=== PATIENT | female | born 1995 | race Two or more races ===

== ENCOUNTER 2018-11-29 15:09 | Inpatient (IN) ==
[2018-11-29] MEDS ORDERED: BUTORPHANOL 2 MG/ML VIAL IV PRN (15:21)
[2018-11-29] MEDS ORDERED: ONDANSETRON 4 MG/2 ML VIAL IV PRN (15:21)
[2018-11-29] MEDS ORDERED: MEPERIDINE 50 MG/1 ML VIAL IV PRN (15:21)
[2018-11-29] MEDS ORDERED: DINOPROSTONE VAG GEL 10 MG SYRINGE VAG ONE (15:26)
[2018-11-29 15:52] LABS: Basophils % 0.3 % (0.0-0.8); Eosinophils # 0.1 10*3/uL (0.0-0.87); Eosinophils % 1.2 % (0.00-10.9); Hematocrit 28.5 VOL% (35.7-47.0); Hemoglobin 8.8 GM/DL (12.0-16.0); Immature Granulocytes % 0.5 %; Immature Granulocytes Absolute 0.04 #; Lymphocytes # 2.3 10*3/uL (1.4-4.0); Lymphocytes % 30.1 % (21.3-54.2); Mean Corpuscular HGB Conc 30.9 GM/DL (32-36); Mean Corpuscular Hemoglobin 26 PG (27-34); Mean Corpuscular Volume 84.8 FL (87-102); Mean Platelet Volume 9.7 FL (9.6-12.0); Monocytes # 0.8 10*3/uL (0.11-0.8); Monocytes % 10.5 % (1.7-12.7); NRBC # 0.02 10*3/uL; Neutrophils # 4.3 10*3/uL (1.4-7.4); Neutrophils % 57.4 % (38.7-73.9); Platelet Count 343 T/CUMM (130-400); Red Blood Count 3.36 MC/CUMM (3.8-5.5); Red Cell Distribution Width 15.8 % (9.3-17.3); White Blood Count 7.5 T/CUMM (4-12)
[2018-11-29 16:06] LABS: INR 0.9; PT Patient Result 9.5 SECS; Partial Thromboplastin Time 28.5 SECS (0-40)
[2018-11-29 16:14] LABS: Alanine Aminotransferase 16 U/L (13-56); Albumin 2.8 G/DL (3.4-5.0); Alkaline Phosphatase 188 U/L (45-117); Aspartate Amino Transferase 21 U/L (0-37); Bilirubin,Total < 0.39 MG/DL (0.2-1.0); Blood Urea Nitrogen 9 MG/DL (7-18); Calcium 8.6 MG/DL (8.5-10.1); Glucose 66 MG/DL (74-106); Osmolality,Calculated 269.8 MOS/KG (273-304); Potassium 3.8 MMOL/L (3.5-5.1); Sodium 137 MMOL/L (136-145); Total Protein 6.9 G/DL (6.4-8.3); Uric Acid 4.8 MG/DL (2.6-6.0)
[2018-11-30] MEDS ORDERED: ZALEPLON 5 MG CAPSULE PO ONE (01:03)
[2018-11-30] MEDS: LACTATED RINGERS 1,000 ML IV SCH ×2 (01:45→11:58)
[2018-11-30] MEDS ORDERED: OXYTOCIN/LR 20 UNIT/1,000 ML BAG IV SCH (02:00)
[2018-11-30] MEDS ORDERED: DINOPROSTONE VAG GEL 10 MG SYRINGE VAG ONE (08:04)
[2018-11-30] MEDS ORDERED: ceFAZolin 2,000 MG in PREMIX 1 EACH IV ONE (16:25)
[2018-11-30] MEDS ORDERED: CITRIC ACID/SODIUM CITRATE 30 ML UDCUP PO ONE (16:25)
[2018-11-30] MEDS ORDERED: FAMOTIDINE 20 MG/2 ML VIAL IV ONE (16:25)
[2018-11-30] MEDS ORDERED: OXYTOCIN 10 UNIT/ML VIAL IM ONE (16:34)
[2018-11-30] MEDS ORDERED: OXYTOCIN/LR 30 UNIT/1,000 ML BAG IV ONE ×2 (16:34→22:30)
[2018-11-30] MEDS ORDERED: BUPIVACAINE 0.5% 50 ML VIAL ONE (17:31)
[2018-11-30 17:58] LABS: Cord Arterial Blood HCO3 24.8 MMOL/L
[2018-11-30 18:00] LABS: Cord Venous Blood HCO3 20.7 MMOL/L; Cord Venous Blood PCO2 47.6 MMHG; Cord Venous Blood PO2 18.4
[2018-11-30] MEDS ORDERED: RHO(D) IMMUNE GLOBULIN 300 MCG SYRINGE IM ONE (18:00)
[2018-11-30] MEDS ORDERED: ONDANSETRON 4 MG/2 ML VIAL IV PRN (18:00)
[2018-11-30] MEDS ORDERED: OXYTOCIN/LR 20 UNIT/1,000 ML BAG IV ONE (18:00)
[2018-11-30] MEDS ORDERED: SIMETHICONE CHEW 80 MG TABLET PO PRN (18:00)
[2018-11-30] MEDS ORDERED: ACETAMINOPHEN 325 MG TABLET PO PRN (18:00)
[2018-11-30 18:01] LABS: Apearance,Urine CLEAR (Clear); Bilirubin,Urine Negative (Negative); Blood, Urine Negative (Negative); Glucose,Urine (UA) Negative (Negative); Ketones,Urine 20 mg/dL (Negative); Mucus,Urine Occasional /LPF (Occasional); Nitrite,Urine Negative (Negative); Protein,Urine Negative; Squamous Epithelial Cell,Urine Occasional /HPF (0-10); Urine Color Yellow (Yellow); Urine Specific Gravity 1.014 (1.001-1.035); Urine Urobilinogen < 2.0 EU/DL (0.2-1.0); WBC,Urine 1 /HPF (0-6)
[2018-11-30] MEDS ORDERED: LACTATED RINGERS 2,000 ML IV ONE (18:14)
[2018-11-30] MEDS ORDERED: MORPHINE 10 MG/10 ML VIAL ONE (18:14)
[2018-11-30] MEDS ORDERED: fentaNYL 100 MCG/2 ML VIAL ONE (18:14)
[2018-11-30] MEDS ORDERED: BUPIVACAINE SPINAL 0.75% 2 ML AMP SPINAL ONE (18:14)
[2018-11-30] MEDS ORDERED: ONDANSETRON 4 MG/2 ML VIAL ONE (18:14)
[2018-11-30] MEDS ORDERED: CARBOPROST TROMETHAMINE 250 MCG/ML AMP IM ONE (22:24)
[2018-11-30] MEDS ORDERED: PROMETHAZINE 25 MG/1 ML VIAL IM PRN (22:48)
[2018-12-01] MEDS: LACTATED RINGERS 1,000 ML IV SCH ×2 (00:52→02:36)
[2018-12-01] MEDS: DOCUSATE SODIUM 100 MG CAPSULE PO SCH ×3 (00:52→22:45)
[2018-12-01] MEDS: ceFAZolin 1,000 MG in SYRINGE 1 EACH IV SCH ×2 (00:59→09:25)
[2018-12-01] MEDS ORDERED: METOCLOPRAMIDE 10 MG TABLET PO PRN (02:02)
[2018-12-01 02:09] LABS: Basophils % 0.3 % (0.0-0.8); Hematocrit 25.5 VOL% (35.7-47.0); Hemoglobin 7.6 GM/DL (12.0-16.0); Immature Granulocytes % 0.6 %; Immature Granulocytes Absolute 0.07 #; Lymphocytes # 1.4 10*3/uL (1.4-4.0); Lymphocytes % 12.1 % (21.3-54.2); Mean Corpuscular HGB Conc 29.8 GM/DL (32-36); Mean Corpuscular Hemoglobin 26 PG (27-34); Mean Corpuscular Volume 86.1 FL (87-102); Mean Platelet Volume 9.8 FL (9.6-12.0); Monocytes # 0.5 10*3/uL (0.11-0.8); Monocytes % 4.4 % (1.7-12.7); Neutrophils # 9.3 10*3/uL (1.4-7.4); Neutrophils % 82.6 % (38.7-73.9); Platelet Count 284 T/CUMM (130-400); Red Blood Count 2.96 MC/CUMM (3.8-5.5); Red Cell Distribution Width 15.7 % (9.3-17.3); White Blood Count 11.3 T/CUMM (4-12)
[2018-12-01 02:18] LABS: Total Cells Counted 0
[2018-12-01] MEDS: FERROUS SULFATE 325 MG TABLET PO SCH ×2 (09:25→22:45)
[2018-12-01] MEDS: MULTIVITAMIN (PRENATAL) TABLET PO SCH (09:25)
[2018-12-01] MEDS: METOCLOPRAMIDE 10 MG TABLET PO SCH ×2 (09:25→17:39)
[2018-12-01 12:19] LABS: Basophils % 0.1 % (0.0-0.8); Eosinophils % 0.4 % (0.00-10.9); Hematocrit 21.9 VOL% (35.7-47.0); Hemoglobin 6.9 GM/DL (12.0-16.0); Immature Granulocytes % 0.4 %; Immature Granulocytes Absolute 0.05 #; Lymphocytes # 2.4 10*3/uL (1.4-4.0); Lymphocytes % 20.6 % (21.3-54.2); Mean Corpuscular HGB Conc 31.5 GM/DL (32-36); Mean Corpuscular Hemoglobin 26 PG (27-34); Mean Corpuscular Volume 83.9 FL (87-102); Mean Platelet Volume 10.4 FL (9.6-12.0); Monocytes % 8.9 % (1.7-12.7); Neutrophils % 69.6 % (38.7-73.9); Platelet Count 300 T/CUMM (130-400); Red Blood Count 2.61 MC/CUMM (3.8-5.5); Red Cell Distribution Width 15.7 % (9.3-17.3); White Blood Count 11.4 T/CUMM (4-12)
[2018-12-01] MEDS ORDERED: SODIUM CHLORIDE 0.9% 1,000 ML IV PRN (13:00)
[2018-12-01] MEDS: MAGNESIUM HYDROXIDE SUSP 30 ML UDCUP PO PRN (15:16)
[2018-12-01] MEDS: IBUPROFEN 800 MG TABLET PO PRN (22:45)
[2018-12-01] MEDS ORDERED: MAGNESIUM CITRATE 300 ML BOTTLE PO ONE (23:02)
[2018-12-02 00:56] LABS: Hematocrit 26.8 VOL% (35.7-47.0); Hemoglobin 8.6 GM/DL (12.0-16.0)
[2018-12-02] MEDS: METOCLOPRAMIDE 10 MG TABLET PO SCH ×2 (01:09→08:31)
[2018-12-02] MEDS ORDERED: MEASLES/MUMPS/RUBELLA VACCINE 0.5 ML VIAL SUBCUT ONE (02:49)
[2018-12-02] MEDS: LACTATED RINGERS 1,000 ML IV SCH (06:20)
[2018-12-02 07:14] VITALS: BP 117/77
[2018-12-02] MEDS: FERROUS SULFATE 325 MG TABLET PO SCH (08:30)
[2018-12-02] MEDS: DOCUSATE SODIUM 100 MG CAPSULE PO SCH (08:30)
[2018-12-02] MEDS: MULTIVITAMIN (PRENATAL) TABLET PO SCH (08:30)
[2018-12-02] MEDS: MAGNESIUM HYDROXIDE SUSP 30 ML UDCUP PO PRN (08:31)
[2018-12-02] MEDS ORDERED: DIPH/TET/ACEL PERT BOOSTER VACCINE 0.5 ML VIAL IM ONE (10:30)
[2018-12-02] MEDS: IBUPROFEN 800 MG TABLET PO PRN (13:05)
== END 2018-12-02 14:05 | disposition home or self-care (01) | DRG 788 ==
LOC: N.LDOUT 15:09 → N.LD 15:11 → N.OB 11-30 21:50
PROVIDERS: ADMIT Obstetrics & Gynecology; ATTEND Obstetrics & Gynecology
PROC: LDCSECT (ICD-10-PCS; 2018-11-30 17:00)

== ENCOUNTER 2020-03-15 10:45 | Inpatient (IN) ==
[2020-03-15] MEDS ORDERED: ONDANSETRON 4 MG/2 ML VIAL IV PRN ×2 (12:27→17:54)
[2020-03-15] MEDS ORDERED: LACTATED RINGERS 1,000 ML IV SCH ×2 (12:30→18:00)
[2020-03-15] MEDS ORDERED: FAMOTIDINE 20 MG/2 ML VIAL IV ONE (12:32)
[2020-03-15] MEDS ORDERED: CITRIC ACID/SODIUM CITRATE 30 ML UDCUP PO ONE (12:32)
[2020-03-15] MEDS ORDERED: LACTATED RINGERS 1,000 ML IV ONE (12:32)
[2020-03-15 12:47] LABS: Basophils % 0.6 % (0.0-0.8); Eosinophils # 0.1 10*3/uL (0.0-0.87); Eosinophils % 1.4 % (0.00-10.9); Hematocrit 27.4 VOL% (35.7-47.0); Hemoglobin 8.3 GM/DL (12.0-16.0); Immature Granulocytes % 0.7 %; Immature Granulocytes Absolute 0.05 #; Lymphocytes # 1.9 10*3/uL (1.4-4.0); Lymphocytes % 27.4 % (21.3-54.2); Mean Corpuscular HGB Conc 30.3 GM/DL (32-36); Mean Corpuscular Volume 82.8 FL (87-102); Mean Platelet Volume 9.9 FL (9.6-12.0); Monocytes % 7.6 % (1.7-12.7); NRBC # 0.02 10*3/uL; Neutrophils % 62.3 % (38.7-73.9); Platelet Count 261 T/CUMM (130-400); Red Blood Count 3.31 MC/CUMM (3.8-5.5); Red Cell Distribution Width 15.6 % (9.3-17.3)
[2020-03-15] MEDS ORDERED: OXYTOCIN 10 UNIT/ML VIAL IM ONE (12:52)
[2020-03-15] MEDS ORDERED: ceFAZolin 2,000 MG in PREMIX 1 EACH IV ONE (12:52)
[2020-03-15] MEDS ORDERED: OXYTOCIN/LR 20 UNIT/1,000 ML BAG IV ONE ×2 (12:52→19:00)
[2020-03-15 13:11] LABS: Albumin 2.9 G/DL (3.4-5.0); Calcium 8.7 MG/DL (8.5-10.1); Osmolality,Calculated 269.7 MOS/KG (273-304); Total Protein 7.3 G/DL (6.4-8.3); Uric Acid 3.2 MG/DL (2.6-6.0)
[2020-03-15] MEDS ORDERED: ROPIVACAINE 0.5% 30 ML VIAL ONE (14:21)
[2020-03-15] MEDS ORDERED: PHENYLEPHRINE 1 MG/10 ML SYRINGE IV ONE ×2 (14:21→16:14)
[2020-03-15] MEDS ORDERED: BUPIVACAINE SPINAL 0.75% 2 ML AMP SPINAL ONE ×2 (14:21→16:12)
[2020-03-15] MEDS ORDERED: MORPHINE 10 MG/10 ML VIAL ONE ×2 (14:21→16:13)
[2020-03-15] MEDS ORDERED: DEXAMETHASONE 4 MG/1 ML VIAL ONE ×2 (14:21→16:13)
[2020-03-15 15:30] LABS: Cord Arterial Blood HCO3 21.8 MMOL/L
[2020-03-15 15:31] LABS: Cord Venous Blood HCO3 23.6 MMOL/L; Cord Venous Blood PCO2 39.9 MMHG; Cord Venous Blood PO2 32.5 MMHG
[2020-03-15 15:40] LABS: Apearance,Urine CLEAR (Clear); Bacteria,Urine Occasional /HPF (Few); Bilirubin,Urine Negative (Negative); Blood, Urine Negative (Negative); Glucose,Urine (UA) Negative (Negative); Ketones,Urine 20 mg/dL (Negative); Mucus,Urine Occasional /LPF (Occasional); Nitrite,Urine Negative (Negative); Protein,Urine Negative; RBC,Urine 1 /HPF (0-4); Squamous Epithelial Cell,Urine Occasional /HPF (0-10); Transitional Epi Cells,Urine Occasional /HPF (<1); Urine Color Straw (Yellow); Urine Specific Gravity 1.009 (1.001-1.035); Urine Urobilinogen < 2.0 EU/DL (0.2-1.0); WBC,Urine 1 /HPF (0-6)
[2020-03-15] MEDS ORDERED: ONDANSETRON 4 MG/2 ML VIAL ONE (16:13)
[2020-03-15] MEDS ORDERED: GLYCOPYRROLATE 0.4 MG/2 ML VIAL ONE (16:13)
[2020-03-15] MEDS ORDERED: MAGNESIUM HYDROXIDE SUSP 30 ML UDCUP PO PRN (17:54)
[2020-03-15] MEDS ORDERED: SIMETHICONE CHEW 80 MG TABLET PO PRN (17:54)
[2020-03-15] MEDS ORDERED: RHO(D) IMMUNE GLOBULIN 300 MCG SYRINGE IM ONE (17:54)
[2020-03-15] MEDS ORDERED: ACETAMINOPHEN 325 MG TABLET PO PRN (17:54)
[2020-03-15] MEDS ORDERED: diphenhydrAMINE 50 MG/1 ML VIAL IV PRN (21:55)
[2020-03-15] MEDS ORDERED: diphenhydrAMINE 50 MG/1 ML VIAL ONE (21:57)
[2020-03-15] MEDS: DOCUSATE SODIUM 100 MG CAPSULE PO SCH (22:03)
[2020-03-15 23:36] LABS: Basophils % 0.2 % (0.0-0.8); Hematocrit 30.2 VOL% (35.7-47.0); Hemoglobin 8.8 GM/DL (12.0-16.0); Immature Granulocytes % 0.6 %; Immature Granulocytes Absolute 0.07 #; Lymphocytes # 1.6 10*3/uL (1.4-4.0); Mean Corpuscular HGB Conc 29.1 GM/DL (32-36); Mean Corpuscular Volume 83.9 FL (87-102); Mean Platelet Volume 9.5 FL (9.6-12.0); Monocytes % 1.5 % (1.7-12.7); Neutrophils % 83.7 % (38.7-73.9); Platelet Count 291 T/CUMM (130-400); Red Cell Distribution Width 15.4 % (9.3-17.3); White Blood Count 11.1 T/CUMM (4-12)
[2020-03-15] MEDS: ceFAZolin 1,000 MG in SYRINGE 1 EACH IV SCH (23:46)
[2020-03-16] MEDS: IBUPROFEN 800 MG TABLET PO PRN ×2 (05:52→20:55)
[2020-03-16 07:06] LABS: Basophils % 0.3 % (0.0-0.8); Eosinophils % 0.1 % (0.00-10.9); Hematocrit 25.8 VOL% (35.7-47.0); Hemoglobin 7.6 GM/DL (12.0-16.0); Immature Granulocytes % 0.6 %; Immature Granulocytes Absolute 0.06 #; Lymphocytes # 1.9 10*3/uL (1.4-4.0); Lymphocytes % 18.5 % (21.3-54.2); Mean Corpuscular HGB Conc 29.5 GM/DL (32-36); Mean Corpuscular Volume 83.5 FL (87-102); Mean Platelet Volume 10.4 FL (9.6-12.0); Monocytes % 8.4 % (1.7-12.7); Neutrophils % 72.1 % (38.7-73.9); Platelet Count 292 T/CUMM (130-400); Red Blood Count 3.09 MC/CUMM (3.8-5.5); Red Cell Distribution Width 15.4 % (9.3-17.3); White Blood Count 10.3 T/CUMM (4-12)
[2020-03-16] MEDS: ceFAZolin 1,000 MG in SYRINGE 1 EACH IV SCH (07:06)
[2020-03-16] MEDS: MULTIVITAMIN (PRENATAL) TABLET PO SCH (10:32)
[2020-03-16] MEDS: FERROUS SULFATE 325 MG TABLET PO SCH ×3 (10:32→20:55)
[2020-03-16] MEDS: DOCUSATE SODIUM 100 MG CAPSULE PO SCH ×2 (10:33→20:55)
[2020-03-16] MEDS: MAGNESIUM HYDROXIDE SUSP 30 ML UDCUP PO SCH ×2 (10:39→21:28)
[2020-03-16] MEDS: METOCLOPRAMIDE 10 MG TABLET PO SCH ×2 (10:39→18:03)
[2020-03-17] MEDS: METOCLOPRAMIDE 10 MG TABLET PO SCH ×2 (06:07→09:10)
[2020-03-17] MEDS: MULTIVITAMIN (PRENATAL) TABLET PO SCH (09:10)
[2020-03-17] MEDS: DOCUSATE SODIUM 100 MG CAPSULE PO SCH (09:10)
[2020-03-17] MEDS: FERROUS SULFATE 325 MG TABLET PO SCH (09:10)
[2020-03-17] MEDS: MAGNESIUM HYDROXIDE SUSP 30 ML UDCUP PO SCH (09:10)
[2020-03-17] MEDS: IBUPROFEN 800 MG TABLET PO PRN (09:14)
[2020-03-17 10:51] VITALS: BP 133/81
[2020-03-17] MEDS ORDERED: MEASLES/MUMPS/RUBELLA VACCINE 0.5 ML VIAL SUBCUT ONE (11:57)
[2020-03-17] MEDS ORDERED: DIPH/TET/ACEL PERT BOOSTER VACCINE 0.5 ML VIAL IM ONE (11:57)
== END 2020-03-17 13:25 | disposition home or self-care (01) | DRG 788 ==
LOC: N.LDOUT 10:45 → N.LD 11:59 → N.OB 21:10
PROVIDERS: ADMIT Obstetrics & Gynecology; ATTEND Obstetrics & Gynecology
PROC: LDCSECT (ICD-10-PCS; 2020-03-15 15:00)